=== PATIENT | male | born 1965 | race Caucasian/White ===

== ENCOUNTER → 2017-12-06 | Outpatient (CLI) | payer BC, OTHER | END | disposition home or self-care (01) | LOC: CVU 14:30 | PROVIDERS: ATTEND Genetic Counselor, MS | DX: M79.662 Pain in left lower leg (principal); R20.0 Anesthesia of skin; M54.5 Low back pain; E11.9 Type 2 diabetes mellitus without complications | CPT/HCPCS: 93922 ==